=== PATIENT | female | born 1950 | race Caucasian/White ===

== ENCOUNTER 2018-10-03 20:34 | Outpatient (CLI) | payer MEDICARE, OTHER | END 2018-10-03 20:35 | disposition critical access hospital (66) | LOC: EMS 20:34 | PROVIDERS: ATTEND Surgery | DX: S09.90XA Unspecified injury of head, initial encounter (principal); S01.83XA Puncture wound without foreign body of other part of head, initial encounter; R46.4 Slowness and poor responsiveness; W18.30XA Fall on same level, unspecified, initial encounter; Y92.002 Bathroom of unspecified non-institutional (private) residence as the place of occurrence of the external cause | CPT/HCPCS: A0425; A0427 ==

== ENCOUNTER 2018-10-03 20:49 | Emergency (ER) | payer MEDICARE, OTHER ==
--- NOTE | 2018-10-03 20:55 | ED Physician Documentation ---
History of Present Illness - Stated complaint Stated Complaint: DEC LOC, FELL, ILLNESS - History obtained from History obtained from: EMS - History of Present Illness Timing: Today - Additonal information Additional information: PATIENT UNABLE TO CONTRIBUTE TO HPI/ROS/PE DUE TO SEVERE AMS. HPI from medics, who obtained HPI from friends who were on scene. Friends came to check on patient this evening (patient lives alone) and found her on the floor of her bathroom, naked and appeared to have hit her head: next to her head, there was a hole punched into the wall, and her chin was at rest on a bathroom scale that had a large dent in it where her chin had come to rest. Friends say patient was able to converse when they found her; patient told them she felt "like she had the flu since yesterday" (per medic report) and that she fell at 7 AM this morning and lay on the floor until friends found her. Medics arrived and found patient to be unconscious with pulse of 31, blood pressure 55/20, and temperature of 31. She was given 500cc warmed NS IV. pulse ox 92% room air, 100% with NRB. Blood sugar 120. Given atropine 0.5mg IV without improvement in vital signs. Pacer pads placed and capture achieved with 125mV and 70 rate. Shortly after capture, patient regained consciousness and was c/o pain from the pacing, given 2mg IV versed. En route to ED, her pulse and bp again became low and thus dopamine IV started at 2mcg/kg/min, then increased to 10. However, she was able to be weaned back off en route, as her pulse and blood pressure again had improved. On arrival, she is no longer being paced. She is unresponsive to verbal and tactile, does not respond to painful stimuli but is breathing regularly and easily Review of Systems Unable to obtain: Unresponsive PD PAST MEDICAL HISTORY - Past Medical History Past Medical History: Yes Respiratory: COPD, Emphysema - Past Surgical History Other past surgical history: unknown - Allergies Allergies/Adverse Reactions: Allergies Allergy/AdvReac Type Severity Reaction Status Date / Time No Known Drug Allergies Allergy Verified 10/04/18 00:44 - Living Situation Living Situation: reports: Alone Living Arrangement: reports: At home PD ED PE NORMAL - Vitals Vital signs reviewed: Yes - General General: Well developed/nourished, Other (unconscious, not responding to any stimuli but breathing regular and easy, maintaining airway without gurgling) - HEENT HEENT: PERRL (4mm bilaterally, minimally reactive) - Cardiac Cardiac: No murmur - Respiratory Respiratory: No respiratory distress, Clear bilaterally - Abdomen Abdomen: Soft, Non distended - Extremities Extremities: No deformity - Neuro Eye Opening: None Motor: None Verbal: None GCS Score: 3 PD ED PE EXPANDED - HEENT HEENT Visual: 1 - abrasion 2 - laceration - Cardiac Cardiac: [place], Regular Rhythm - Derm Derm: Other (cool to touch) Results - Vitals Vitals: Vital Signs - 24 hr 10/03/18 10/03/18 10/03/18 20:51 21:02 21:24 Temperature 31 C L 31 C L 30.5 C L Heart Rate 52 L 59 L 56 L Respiratory 11 L 10 L 13 Rate Blood Pressure 78/48 L 85/49 L 78/49 L O2 Saturation 97 100 100 10/03/18 10/03/18 10/03/18 21:50 22:03 22:42 Temperature 30.8 C L 30.7 C L Heart Rate 46 L 90 75 Respiratory 13 12 12 Rate Blood Pressure 70/46 L 132/79 H 109/64 O2 Saturation 100 100 100 10/03/18 10/03/18 10/03/18 23:02 23:04 23:37 Temperature 31 C L Heart Rate 69 96 Respiratory 11 L 19 Rate Blood Pressure 138/77 H 135/74 H O2 Saturation 99 98 10/03/18 10/04/18 23:57 00:28 Temperature 32.1 C L 33.0 C L Heart Rate 96 104 H Respiratory 14 18 Rate Blood Pressure 135/72 H 132/72 H O2 Saturation 98 92 Oxygen O2 Source Room air Oxygen Flow Rate 3 - EKG (time done) No standard instances Rate: Rate (enter#) (51), [place] Rhythm: Sinus bradycardia [place]: Normal Intervals: Normal OR QRS: Normal Ischemia: Normal ST segments - Labs Labs: Laboratory Tests 10/03/18 10/03/18 10/03/18 21:10 21:10 21:23 WBC RBC Hgb Hct MCV MCH MCHC RDW Plt Count MPV Neut # (Auto) Lymph # (Auto) Harmon # (Auto) Eos # (Auto) Baso # (Auto) Absolute Nucleated RBC Nucleated RBC % PT INR APTT Bld Gas Analysis Time Sample Site ABG pH ABG pCO2 ABG pO2 ABG HCO3 ABG Total CO2 ABG O2 Saturation ABG Base Excess Dieter Test O2 Delivery Device O2 Liters/Min Sodium Potassium Chloride Carbon Dioxide Anion Gap BUN Creatinine Estimated GFR (MDRD) Glucose Lactic Acid 1.1 Calcium Total Bilirubin AST ALT Alkaline Phosphatase Total Creatine Kinase CK-MB (CK-2) Troponin I Total Protein Albumin Globulin Albumin/Globulin Ratio Lipase TSH Urine Color DARK YELLOW Urine Clarity HAZY Urine pH 5.5 Ur Specific [place] >=1.030 H Urine Protein TRACE Urine Glucose (UA) NEGATIVE Urine Ketones NEGATIVE Urine Occult Blood MODERATE H Urine Nitrite NEGATIVE Urine Bilirubin NEGATIVE Urine Urobilinogen 0.2 (NORMAL) Ur Leukocyte Esterase NEGATIVE Urine RBC 6-10 H Urine WBC 0-3 Ur Squamous Epith Cells NONE SEEN Amorphous Sediment Rare Urine Bacteria Rare Urine Casts 11-25 Hyaline Casts Urine Mucus Few Strands Ur Microscopic Review INDICATED Urine Culture Comments NOT INDICATED Urine Opiates Screen NEGATIVE Ur Oxycodone Screen NEGATIVE Urine Methadone Screen NEGATIVE Ur Propoxyphene Screen NEGATIVE Ur Barbiturates Screen NEGATIVE Ur Tricyclics Screen NEGATIVE Ur Phencyclidine Scrn NEGATIVE Ur Amphetamine Screen NEGATIVE U Methamphetamines Scrn NEGATIVE U Benzodiazepines Scrn NEGATIVE Urine Cocaine Screen NEGATIVE U Cannabinoids Screen NEGATIVE Ethyl Alcohol 10/03/18 10/03/18 10/03/18 21:23 21:23 21:23 WBC 3.6 L RBC 4.27 Hgb 13.0 Hct 39.0 MCV 91.3 MCH 30.5 MCHC 33.4 RDW 13.9 Plt Count 132 MPV 7.7 L Neut # (Auto) 3.1 Lymph # (Auto) 0.3 L Harmon # (Auto) 0.1 Eos # (Auto) 0.0 Baso # (Auto) 0.0 Absolute Nucleated RBC 0.00 Nucleated RBC % 0.0 PT INR APTT Bld Gas Analysis Time Sample Site ABG pH ABG pCO2 ABG pO2 ABG HCO3 ABG Total CO2 ABG O2 Saturation ABG Base Excess Dieter Test O2 Delivery Device O2 Liters/Min Sodium 133 L Potassium 3.8 Chloride 104 Carbon Dioxide 26 Anion Gap 3.0 L BUN 21 H Creatinine 0.6 Estimated GFR (MDRD) 100 Glucose 126 H Lactic Acid Calcium 7.7 L Total Bilirubin 1.3 H AST 57 H ALT 30 Alkaline Phosphatase 51 Total Creatine Kinase 2532 H* CK-MB (CK-2) 39.3 H Troponin I < 0.04 Total Protein 6.1 L Albumin 2.9 L Globulin 3.2 Albumin/Globulin Ratio 0.9 L Lipase 20 L TSH Urine Color Urine Clarity Urine pH Ur Specific [place] Urine Protein Urine Glucose (UA) Urine Ketones Urine Occult Blood Urine Nitrite Urine Bilirubin Urine Urobilinogen Ur Leukocyte Esterase Urine RBC Urine WBC Ur Squamous Epith Cells Amorphous Sediment Urine Bacteria Urine Casts Urine Mucus Ur Microscopic Review Urine Culture Comments Urine Opiates Screen Ur Oxycodone Screen Urine Methadone Screen Ur Propoxyphene Screen Ur Barbiturates Screen Ur Tricyclics Screen Ur Phencyclidine Scrn Ur Amphetamine Screen U Methamphetamines Scrn U Benzodiazepines Scrn Urine Cocaine Screen U Cannabinoids Screen Ethyl Alcohol 10/03/18 10/03/18 10/03/18 21:23 21:23 21:23 WBC RBC Hgb Hct MCV MCH MCHC RDW Plt Count MPV Neut # (Auto) Lymph # (Auto) [place]on # (Auto) Eos # (Auto) Baso # (Auto) Absolute Nucleated RBC Nucleated RBC % PT 14.8 H INR 1.3 H APTT 30.0 Bld Gas Analysis Time Sample Site ABG pH ABG pCO2 ABG pO2 ABG HCO3 ABG Total CO2 ABG O2 Saturation ABG Base Excess Dieter Test O2 Delivery Device O2 Liters/Min Sodium Potassium Chloride Carbon Dioxide Anion Gap BUN Creatinine Estimated GFR (MDRD) Glucose Lactic Acid Calcium Total Bilirubin AST ALT Alkaline Phosphatase Total Creatine Kinase CK-MB (CK-2) Troponin I Total Protein Albumin Globulin Albumin/Globulin Ratio Lipase TSH 0.93 Urine Color Urine Clarity Urine pH Ur Specific [place] Urine Protein Urine Glucose (UA) Urine Ketones Urine Occult Blood Urine Nitrite Urine Bilirubin Urine Urobilinogen Ur Leukocyte Esterase Urine RBC Urine WBC Ur Squamous Epith Cells Amorphous Sediment Urine Bacteria Urine Casts Urine Mucus Ur Microscopic Review Urine Culture Comments Urine Opiates Screen Ur Oxycodone Screen Urine Methadone Screen Ur Propoxyphene Screen Ur Barbiturates Screen Ur Tricyclics Screen Ur Phencyclidine Scrn Ur Amphetamine Screen U Methamphetamines Scrn U Benzodiazepines Scrn Urine Cocaine Screen U Cannabinoids Screen Ethyl Alcohol < 5.0 10/03/18 21:35 WBC RBC Hgb Hct MCV MCH MCHC RDW Plt Count MPV Neut # (Auto) Lymph # (Auto) [place] # (Auto) Eos # (Auto) Baso # (Auto) Absolute Nucleated RBC Nucleated RBC % PT INR APTT Bld Gas Analysis Time 2141 Sample Site UNKNOWN ABG pH 7.17 L* ABG pCO2 67 H* ABG pO2 417 H* ABG HCO3 23.9 ABG Total CO2 26.0 ABG O2 Saturation 100 H ABG Base Excess -5.6 L Dieter Test POSITIVE O2 Delivery Device NON REBREATHER MASK O2 Liters/Min 15.00 Sodium Potassium Chloride Carbon Dioxide Anion Gap BUN Creatinine Estimated GFR (MDRD) Glucose Lactic Acid Calcium Total Bilirubin AST ALT Alkaline Phosphatase Total Creatine Kinase CK-MB (CK-2) Troponin I Total Protein Albumin Globulin Albumin/Globulin Ratio Lipase TSH Urine Color Urine Clarity Urine pH Ur Specific [place] Urine Protein Urine Glucose (UA) Urine Ketones Urine Occult Blood Urine Nitrite Urine Bilirubin Urine Urobilinogen Ur Leukocyte Esterase Urine RBC Urine WBC Ur Squamous Epith Cells Amorphous Sediment Urine Bacteria Urine Casts Urine Mucus Ur Microscopic Review Urine Culture Comments Urine Opiates Screen Ur Oxycodone Screen Urine Methadone Screen Ur Propoxyphene Screen Ur Barbiturates Screen Ur Tricyclics Screen Ur Phencyclidine Scrn Ur Amphetamine Screen U Methamphetamines Scrn U Benzodiazepines Scrn Urine Cocaine Screen U Cannabinoids Screen Ethyl Alcohol - Rads (name of study) CT head Radiology: Prelim report reviewed chest xray Radiology: Prelim report reviewed, See rad report CT c-spine Radiology: Prelim report reviewed, See rad report PD MEDICAL DECISION MAKING - ED course Complexity details: reviewed results, re-evaluated patient, considered differential, other (friends in ED are able to provide information) ED course: Note that patient initially given GCS 3, but later in ED stay, she was able to produce some speech (asked for water). I was told she was able to use head gestures to answer some questions; when I was informed of this, I instructed patient to not move her head due to injury to her neck. She would blink her eyes on command without fail but there is no movement of any of her extremities when I ask her to try to move her hands, toes/feet, and to try to squeeze my fingers with her hands. LTS intact on face. Thus, GCS now is at least 10 (I was not able to assess orientation due to time constraints, but RN informed me that patient indicated that she was oriented to self and place). CT shows unstable cervical spine fracture with epidural hematoma. D/W Dr. Sanderson (trauma surgery at [facility] [place]), accepts patient for transfer. I asked if steroids were indicated and she recommends not giving steroids at this time. - Critical Care Time(min): 110 Time Includes: Direct patient care, Reassess patient, Document care, Coordinate care, Medical consult, See progress note Data interpretation: Labs, Pulse ox, ABG, CXR, See progress note Procedures included in critical care time: See progress note Procedures excluded from critical care time: See progress note Departure - Departure Disposition: 02 Transfer Acute Care Hosp Clinical Impression: Spinal subdural hematoma Cervical vertebral fracture Qualifiers: Encounter type: initial encounter Cervical vertebra fracture level: C5 Fracture type: closed Fracture morphology: unspecified fracture morphology Fracture alignment: displaced Qualified Code(s): S12.400A - Unspecified displaced fracture of fifth cervical vertebra, initial encounter for closed fracture
[2018-10-03 21:25] LABS: BILIRUBIN,URINE NEGATIVE (NEGATIVE); GLUCOSE, URINE (UA) NEGATIVE (NEGATIVE); KETONES,URINE (UA) NEGATIVE (NEGATIVE); LEUKOCYTE ESTERASE, URINE NEGATIVE (NEGATIVE); NITRITE,URINE NEGATIVE (NEGATIVE); OCCULT BLOOD,URINE MODERATE (NEGATIVE); PH,URINE 5.5 PH (5.0-7.5); PROTEIN,URINE TRACE mg/dL (NEGATIVE); UROBILINOGEN,URINE 0.2 (NORMAL) E.U./dL (NORMAL)
[2018-10-03 21:34] LABS: CLARITY,URINE HAZY (CLEAR)
[2018-10-03 21:35] LABS: AMORPHOUS SEDIMENT,UR Rare /LPF; BACTERIA,URINE Rare /HPF (None Seen); CASTS, URINE 11-25 Hyaline Casts /LPF; MUCUS,URINE Few Strands; SQUAMOUS EPITHELIAL CELL,UR NONE SEEN (<= Few)
[2018-10-03 21:36] LABS: BASOPHILS % (AUTO) 0.1 %; LYMPHOCYTES # (AUTO) 0.3 10^3/uL (1.5-3.5); LYMPHOCYTES % (AUTO) 9.2 %; MEAN CORPUSCULAR HEMOGLOBIN 30.5 pg (27.0-31.0); MEAN CORPUSCULAR HGB CONC 33.4 g/dL (32.0-36.0); MEAN CORPUSCULAR VOLUME 91.3 fL (81.0-99.0); MEAN PLATELET VOLUME 7.7 fL (7.9-10.8); MONOCYTES # (AUTO) 0.1 10^3/uL (0.0-1.0); MONOCYTES % (AUTO) 3.8 %; NEUTROPHILS # (AUTO) 3.1 10^3/uL (1.5-6.6); NEUTROPHILS % (AUTO) 86.9 %; PLT - PLATELET COUNT 132 10^3/uL (130-450); RED BLOOD COUNT 4.27 10^6/uL (4.20-5.40); RED CELL DISTRIBUTION WIDTH 13.9 % (12.0-15.0); WHITE BLOOD COUNT 3.6 x10^3/uL (4.8-10.8)
[2018-10-03 21:49] LABS: TROPONIN I < 0.04 ng/mL (<0.49)
[2018-10-03 21:50] LABS: ABG BASE EXCESS -5.6 mmol/L (-2.0-3.0); ABG HCO3 23.9 mmol/L (22.0-26.0); ABG OXYGEN SATURATION 100 % (94-98); ALLEN TEST POSITIVE
[2018-10-03 21:51] LABS: CREATINE KINASE MB 39.3 ng/mL (0.6-6.3)
[2018-10-03 21:54] LABS: ABG PCO2 67 mmHg (34-45); ABG PH 7.17 (7.35-7.45)
[2018-10-03 21:55] LABS: ABG PO2 417 mmHg (80-100)
[2018-10-03 22:01] LABS: ALBUMIN 2.9 g/dL (3.2-5.5); ALBUMIN/GLOBULIN RATIO 0.9 (1.0-2.2); BILIRUBIN,TOTAL 1.3 mg/dL (0.2-1.0); CALCIUM 7.7 mg/dL (8.5-10.3); CREATININE 0.6 mg/dL (0.4-1.0); TOTAL PROTEIN 6.1 g/dL (6.7-8.2)
[2018-10-03] MEDS ORDERED: SODIUM CHLORIDE 0.9% 2,000 ML IV ONE (22:01)
[2018-10-03] MEDS ORDERED: DOPamine 800 MG/500 ML 800 MG/500 ML BAG IV STA (22:09)
[2018-10-03] MEDS ORDERED: SODIUM CHLORIDE 0.9% 1,000 ML IV STA (22:09)
--- NOTE | 2018-10-03 22:21 | XRAY Report ---
Reason: AMS Procedure Date: 10/03/2018 Accession Number: [id number] / [id number] Procedure: XR - Chest 1 View X-Ray CPT Code: 02148 FULL RESULT: EXAM: CHEST RADIOGRAPHY EXAM DATE: 10/03/2018 10:07 PM. CLINICAL HISTORY: Confusion. COMPARISON: XR CHEST PA AND LAT 06/24/2009 7:13 AM. TECHNIQUE: 1 view. FINDINGS: Lungs/Pleura: There is diffuse reticular opacity within the lungs. This is increased as compared to the previous examination. No evidence of effusion. No pneumothorax. Mediastinum: There is cardiomegaly. There is thoracic aortic tortuosity. Other: None. IMPRESSION: 1. There is cardiomegaly. There is thoracic aorta tortuosity. 2. There is coarse bilateral reticular opacity within the lungs. This has progressed since the previous examination. This probably represents interstitial or chronic lung disease, although some element of acute infiltrate or edema cannot be excluded. 3. No evidence of pneumothorax. RADIA
[2018-10-03 23:08] LABS: MUDS CUTOFF CONCENTRATIONS CUTOFF CONC BELOW:
--- NOTE | 2018-10-03 23:09 | CT Report ---
Reason: head injury, AMS Procedure Date: 10/03/2018 Accession Number: [id number] / [id number] Procedure: CT - Head W/O CPT Code: FULL RESULT: EXAM: CT HEAD EXAM DATE: 10/03/2018 10:31 PM. CLINICAL HISTORY: Head injury, altered mental status. COMPARISON: None. TECHNIQUE: Multiaxial CT images were obtained from the foramen magnum to the vertex. Reformats: Sagittal and coronal. IV contrast: None. In accordance with CT protocol optimization, one or more of the following dose reduction techniques were utilized for this exam: automated exposure control, adjustment of mA and/or KV based on patient size, or use of iterative reconstructive technique. FINDINGS: Parenchyma: No intraparenchymal hemorrhage. No evidence of mass, midline shift or CT findings of acute infarction. Corona-white differentiation is distinct. Diffuse mild chronic microangiopathic white matter changes are evident. Extraaxial Spaces: Normal for age. No subdural or epidural collections identified. Ventricles: The ventricles and cortical sulci are enlarged, consistent with age-related tissue loss. Sinuses: Imaged paranasal sinuses, orbits, and mastoids show no significant abnormality. Bones: No evidence of fracture or calvarial defect. Other: None. IMPRESSION: Mild senescent changes without evidence of acute intracranial abnormality. RADIA
[2018-10-03 23:15] LABS: INR 1.3 (0.8-1.2); PT - PROTHROMBIN TIME 14.8 secs (9.9-12.6)
[2018-10-03 23:19] LABS: AMPHETAMINE SCREEN,URINE NEGATIVE (NEGATIVE); BENZODIAZEPINES SCREEN, URINE NEGATIVE (NEGATIVE); COCAINE SCREEN URINE NEGATIVE (NEGATIVE); METHADONE SCREEN, URINE NEGATIVE (NEGATIVE); METHAMPHETAMINES SCREEN, URINE NEGATIVE (NEGATIVE); OPIATE SCREEN, URINE NEGATIVE (NEGATIVE); OXYCODONE SCREEN, URINE NEGATIVE (NEGATIVE); PROPOXYPHENE SCREEN, URINE NEGATIVE (NEGATIVE); TRICYCLIC ANTIDEPRESSANT,URINE NEGATIVE (NEGATIVE)
--- NOTE | 2018-10-04 00:08 | CT Report ---
Reason: head injury Procedure Date: 10/03/2018 Accession Number: [id number] / [id number] Procedure: CT - Cervical Spine W/O CPT Code: FULL RESULT: EXAM: CT CERVICAL SPINE WITHOUT CONTRAST DATE: 10/03/2018 11:26 PM. HISTORY: Head pain, altered mental status, trauma. COMPARISONS: HEAD W/O 10/03/2018 10:22 PM. TECHNIQUE: Thin-section axial images were acquired of the cervical spine without contrast. Post-processing: Coronal and sagittal reformats. Other: None. In accordance with CT protocol optimization, one or more of the following dose reduction techniques were utilized for this exam: automated exposure control, adjustment of mA and/or KV based on patient size, or use of iterative reconstructive technique. FINDINGS: Alignment: There is abnormal, likely acute retrolisthesis at C4-C5 measuring 2 mm with widening of the anterior disk space. Bones: There is an acute fracture involving the anterior inferior corner of the C4 vertebral body. However, the acute fracture mostly involves the disk space. No other acute bony fracture is seen. Interspace Levels/Facets: C1-C2: Mild degenerative changes are present anteriorly without craniocervical stenosis. C2-C3: The spinal canal is patent but there may be mild narrowing of the thecal sac due to anterior and dorsal epidural hematoma (image 35, series 3). Left-sided facet arthropathy results in mild left foraminal narrowing. The right foramen is patent. C3-C4: There is suspected mild circumferential epidural hematoma without definite spinal cord compression. Severe left foraminal narrowing is present due to uncovertebral hypertrophy and facet arthropathy. The right foramen is patent. C4-C5: On sagittal images, there is abnormal alignment of the anterior aspect of the spinous process compared to the spinous process above and below this level. (Image 50, series 4). This causes moderate to severe spinal canal stenosis with probable spinal cord compression. There is severe right and moderate left foraminal narrowing due to uncovertebral hypertrophy and retrolisthesis. C5-C6: Unremarkable. C6-C7: There is mild left foraminal narrowing due to uncovertebral hypertrophy. The spinal canal and right foramen are patent. C7-T1: Unremarkable. Musculature: There is mild diffuse fatty atrophy of the posterior paraspinal muscles. Other: The paravertebral and prevertebral soft tissues are unremarkable. Scarring is noted in the lung apices. IMPRESSION: 1. Acute fracture through the C4-C5 disk space with widening of the anterior disk space, acute retrolisthesis, and abnormal alignment of the spinous process. This is an unstable spine fracture. The abnormal alignment of the spine at this level causes moderate to severe spinal canal stenosis with probable impingement of the spinal cord. 2. Probable epidural hematoma is noted at C4-C5 and appears to extend superiorly to the C2-C3 level where there is mass effect on the thecal sac. RADIA The above findings were discussed with Dr. Queen by Dr. Anjali Beckford at 00:03 hrs on 10/04/18.
[2018-10-04 00:29] VITALS: BP 132/72
[2018-10-04] MEDS ORDERED: MORPHINE 2 MG/ML CARPUJECT IVP STA (01:07)
== END 2018-10-04 01:30 | disposition short-term general hospital (02) ==
LOC: EDUNIT# → ED 20:49
DX: S14.102A Unspecified injury at C2 level of cervical spinal cord, initial encounter (principal); S12.400A Unspecified displaced fracture of fifth cervical vertebra, initial encounter for closed fracture; S00.81XA Abrasion of other part of head, initial encounter; S01.81XA Laceration without foreign body of other part of head, initial encounter; W18.30XA Fall on same level, unspecified, initial encounter; Y92.002 Bathroom of unspecified non-institutional (private) residence as the place of occurrence of the external cause; R40.20 Unspecified coma; R00.1 Bradycardia, unspecified; J44.9 Chronic obstructive pulmonary disease, unspecified
CPT/HCPCS: 36415; 36600; 51702; 70450; 71045; 72125; 80053; 80306; 80320; 81001; 81003; 82550; 82553; 82803; 83605; 83690; 84443; 84484; 85025; 85610; 85730; 87040; 87086; 93005; 96361; 96365; 96375; 99285; 99291; 99292